=== PATIENT | male | born 1990 | race Caucasian/White ===

== ENCOUNTER 2017-04-10 14:51 | Emergency (ER) | payer MEDICAID ==
[2017-04-10 15:13] VITALS: BP 136/65
== END 2017-04-10 16:02 | disposition home or self-care (01) ==
LOC: ED 14:51
DX: M10.071 Idiopathic gout, right ankle and foot (principal)

== ENCOUNTER 2017-04-26 16:09 | Emergency (ER) | payer MEDICAID ==
[~2017-04-26] VITALS: Ht 170.2 cm; Wt 101.2 kg
[2017-04-26 18:30] VITALS: BP 119/77
== END 2017-04-26 18:30 | disposition home or self-care (01) ==
LOC: ED 16:09
DX: L02.412 Cutaneous abscess of left axilla (principal); L02.411 Cutaneous abscess of right axilla; L03.112 Cellulitis of left axilla; L03.111 Cellulitis of right axilla; R03.0 Elevated blood-pressure reading, without diagnosis of hypertension

== ENCOUNTER 2017-04-29 14:12 | Emergency (ER) | payer MEDICAID ==
[~2017-04-29] VITALS: Ht 170.2 cm; Wt 101.6 kg
[2017-04-29 14:21] VITALS: BP 124/73
== END 2017-04-29 17:23 | disposition left against medical advice (07) ==
LOC: ED 14:12
DX: Z53.21 Procedure and treatment not carried out due to patient leaving prior to being seen by health care provider (principal)

== ENCOUNTER 2017-04-30 11:31 | Emergency (ER) | payer MEDICAID ==
[2017-04-30 11:48] VITALS: BP 126/80
== END 2017-04-30 12:30 | disposition home or self-care (01) ==
LOC: ED 11:31
DX: Z00.8 Encounter for other general examination (principal); Z48.01 Encounter for change or removal of surgical wound dressing

== ENCOUNTER 2017-07-21 02:48 | Emergency (ER) | payer OTHER ==
[2017-07-21 05:52] VITALS: BP 149/90
== END 2017-07-21 05:52 | disposition home or self-care (01) ==
LOC: ED 02:48
DX: S80.861A Insect bite (nonvenomous), right lower leg, initial encounter (principal); W57.XXXA Bitten or stung by nonvenomous insect and other nonvenomous arthropods, initial encounter; Y93.89 Activity, other specified; Y99.8 Other external cause status; Y92.89 Other specified places as the place of occurrence of the external cause
CPT/HCPCS: J0690

== ENCOUNTER 2018-02-18 16:11 | Emergency (ER) | payer OTHER ==
[~2018-02-18] VITALS: Ht 170.2 cm; Wt 98.9 kg
[2018-02-18 16:15] VITALS: Ht 170.2 cm; Wt 98.9 kg
[2018-02-18 19:27] VITALS: BP 133/70
== END 2018-02-18 19:27 | disposition home or self-care (01) ==
LOC: ED 16:11
DX: T15.01XA Foreign body in cornea, right eye, initial encounter (principal); R03.0 Elevated blood-pressure reading, without diagnosis of hypertension; X58.XXXA Exposure to other specified factors, initial encounter; Y93.89 Activity, other specified; Y92.89 Other specified places as the place of occurrence of the external cause; Y99.8 Other external cause status

== ENCOUNTER 2018-08-11 04:35 | Emergency (ER) | payer OTHER ==
[~2018-08-11] VITALS: Ht 170.2 cm; Wt 93.5 kg
[2018-08-11 04:55] VITALS: Ht 170.2 cm; Wt 93.5 kg
[2018-08-11 06:02] VITALS: BP 135/77
== END 2018-08-11 08:17 | disposition home or self-care (01) ==
LOC: ED 04:35
DX: M79.89 Other specified soft tissue disorders (principal); L53.9 Erythematous condition, unspecified
CPT/HCPCS: Q0092